=== PATIENT | female | born 1995 | race Caucasian/White ===

== ENCOUNTER 2016-09-02 18:35 | Emergency (ER) | payer SELFPAY ==
[2016-09-02] MEDS ORDERED: OPTIRAY 350 100 ML VIAL HMH IV ONE (18:36)
[2016-09-02] MEDS ORDERED: SODIUM CHLORIDE 0.9% 1,000 ML ONE (23:04)
[2016-09-02] MEDS ORDERED: ONDANSETRON 4 MG VIAL ONE (23:04)
[2016-09-03] MEDS ORDERED: MORPHINE 4 MG/ML SYR ONE ×2 (00:39→05:04)
[2016-09-03] MEDS ORDERED: ONDANSETRON 4 MG VIAL ONE (04:00)
== END 2016-09-03 07:04 | disposition home or self-care (01) ==
LOC: ER 18:35
CPT/HCPCS: 74177; 96361; 96374; 96375; 96376

== ENCOUNTER 2016-09-05 14:47 | Emergency (ER) | payer SELFPAY ==
[2016-09-05] MEDS ORDERED: DICYCLOMINE 20MG/2ML VIAL IM ONE (21:29)
[2016-09-05] MEDS ORDERED: KETOROLAC 30 MG/ML VIAL ONE (21:30)
[2016-09-05] MEDS ORDERED: ONDANSETRON 4 MG VIAL ONE (21:30)
[2016-09-05] MEDS ORDERED: SODIUM CHLORIDE 0.9% 1,000 ML ONE (21:30)
[2016-09-05] MEDS ORDERED: PROMETHAZINE 25 MG TAB ONE (22:54)
== END 2016-09-05 23:09 | disposition home or self-care (01) ==
LOC: ER 14:47
DX: K52.9 Noninfective gastroenteritis and colitis, unspecified (principal)
CPT/HCPCS: 36415; 80053; 81001; 83690; 84703; 85025; 96361; 96372; 96374; 96375